=== PATIENT | female | born 1990 | race American Indian/Alaskan Native ===

== ENCOUNTER 2022-03-06 06:14 | Day surgery (SDC) | payer OTHER ==
--- NOTE | 2022-03-05 14:56 | History and Physical Report ---
History of Present Illness Date of examination: 02/27/22 Date of admission: 03/06/22 Chief complaint: IUD Removal History of present illness: Visit Type: Pre-Op CC: no complaints. History of Present Illness: Pt presents for Pre-Op. No c/o. ....................... ..............................................Jessica Abbott February 27, 2022 10:20 AM mask,Patient denies fever, cough, shortness of breath and exposure to COVID-19. Pt presents for preop and order so IUD removal hysteroscopically under anesthesia. All risk/benefits/alternatives were d/w pt and questions were addressed and answered. Consents signed and placed on the chart. Risk that were discussed were uterine peforation, inablitlity to remove the device, need for laproscopy and lapratomy for uterine injury, injuiry to vaginal or bladder need for admission to hospital, infections, need for transfusion. Pt expressed understanding. She will rto the next day after removal for remplacement of the device. 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 of genital herpes: no Hx of STD: chlamydia Active Medications (reviewed today): None Current Allergies (reviewed today): No known allergies Past Medical History: Reviewed history from 01/10/2022 and no changes required: Allergies-seasonal Fibroids Past Surgical History: Reviewed history from 01/10/2022 and no changes required: positive: UFE 08/2020 removal of lipoma on "spine" [FH-SH-CCC] Risk Factors: Smoked Tobacco Use: Never smoker Smokeless Tobacco Use: Never Passive Smoke Exposure: no HIV High Risk Behavior: no Exercise: no Seatbelt Use: 100 % Review of Systems General Denies fever, chills, sweats, anorexia, fatigue, weakness, malaise, weight loss and sleep disorder. Denies nausea, vomiting, headache, swelling of legs, abdominal pain, vaginal discharge, vaginal bleeding and contractions. Denies vaginal discharge, incontinence, dysuria, hematuria, urinary frequency, amenorrhea, menorrhagia, abnormal vaginal bleeding, pelvic pain, genital sores, decreased libido, painful periods, painful sex, urinary urgency, hot flashes, vaginal dryness, vaginal itching and vaginal odor. CV Denies chest pains, palpitations, syncope, dyspnea on exertion, orthopnea, PND and peripheral edema. Resp Denies cough, dyspnea at rest, excessive sputum, hemoptysis, wheezing and pleurisy. GI Denies nausea, vomiting, diarrhea, constipation, change in bowel habits, abdominal pain, melena, hematochezia, jaundice, gas/bloating, indigestion/heartburn, dysphagia and odynophagia. Endo Denies cold intolerance, heat intolerance, polydipsia, polyphagia, polyuria and unusual weight change. Breast Denies left breast lump, right breast lump, nipple discharge, bloody discha rge from nipple, breast pain, abnormal mammogram and breast enlargement. MS Denies back pain, joint pain, joint swelling, muscle cramps, muscle weakness, stiffness, arthritis, sciatica, restless legs, leg pain at night and leg pain with exertion. Derm Denies rash, itching, dryness and suspicious lesions. Neuro Denies paralysis, paresthesias, headache, seizures, tremors, vertigo, transient blindness, frequent falls, frequent headaches and difficulty walking. Psych Denies depression, anxiety, irritability and mood swings. Eyes Denies blurring, diplopia, irritation, discharge, vision loss, eye pain and photophobia. ENT Denies earache, ear discharge, tinnitus, decreased hearing, nasal congestion, nosebleeds, sore throat and hoarseness. Allergy Denies urticaria, allergic rash, hay fever and recurrent infections. Heme Denies abnormal bruising, bleeding and enlarged lymph nodes. [Labs In-House] Physical Exam Appearance: well developed, well nourished, no acute distress Other Exams Lungs: no rales, rhonchi, or wheezes Heart: S1, S2, no murmur, rub, or gallop Abdomen: soft, non-tender, no masses, bowel sounds normal Extremities: normal alignment, no joint enlargement, crepitus, masses or tenderness; normal tone and strength Past History Past Medical History: other (see hpi) Past Surgical History: other (see hpi) Family/Genetic History: other (see hpi) Social history: other (see hpi) Medications and Allergies Allergies Allergy/AdvReac Type Severity Reaction Status Date / Time ibuprofen Allergy Hives Verified 03/05/22 12:36 Home Medications Medication Instructions Recorded Confirmed Last Taken Type No Known Home Medications [No 02/27/22 02/27/22 Unknown History Reported Home Medications] Active Meds: Active Medications Acetaminophen (Acetaminophen 500 Mg Tab) 1,000 mg PO PREOP MABLE Stop: 03/06/22 23:59 Lactated Ringer's (Lactated Ringers) 1,000 mls @ 100 mls/hr IV DIRECT MABLE Stop: 03/06/22 23:59 Midazolam HCl (Midazolam 2 Mg/2 Ml Inj) 2 mg IV PREOP NR Stop: 03/06/22 23:59 Scopolamine (Scopolamine Transdermal Patch 72 Hr) 1 each TD PREOP NR Stop: 03/06/22 23:59 - Physical Exam Cardiovascular: Normal S1, Normal S2 Lungs: Positive: Clear to auscultation, Normal air movement Abdomen: Positive: normal appearance, soft. Negative: distention, tenderness, guarding Genitourinary (Female): Positive: other (deferred) Extremities: Positive: normal. Negative: tenderness, edema Deep Tendon Reflex Grade: Normal +2 Results All other labs normal. Assessment and Plan - Patient Problems (1) Encounter for removal of intrauterine contraceptive device (IUD) Status: Acute Plan to address problem: -admit -hysteroscopy with removal of IUD -consent signed and placed on the chart.
[~2022-03-06 06:14] MED LIST: ACETAMINOPHEN 500 MG TAB PO SCH; CELECOXIB 200 MG CAP PO NR; GABAPENTIN 300 MG CAP PO NR; LACTATED RINGERS 1,000 ML IV SCH; MIDAZOLAM 2 MG/2 ML INJ IV NR; SCOPOLAMINE TRANSDERMAL PATCH 72 HR TD NR
[2022-03-06] MEDS ORDERED: HYDROmorphone 0.5 MG/0.5 ML INJ IV PRN (07:21)
[2022-03-06] MEDS ORDERED: HYDROcodone/ACETAMINOPHEN 5-325 MG TAB PO PRN (07:21)
[2022-03-06] MEDS ORDERED: ONDANSETRON 4 MG/2 ML INJ IV PRN (07:21)
--- NOTE | 2022-03-06 07:21 | Anesthesia Consultation ---
Anesthesia Consult and Med Hx Date of service: 03/06/22 - Airway Anesthetic Teeth Evaluation: Good (upper left implant) ROM Head & Neck: Adequate Mental/Hyoid Distance: Adequate Mallampati Class: Class II Intubation Access Assessment: Probably Good - Cardiac Exam Cardiac Exam: RRR - Pre-Operative Health Status ASA Pre-Surgery Classification: ASA2 Proposed Anesthetic Plan: General (MAC vs GA pending discussion w/ surgeon), MAC - Pulmonary Hx Asthma: Yes (last INH 10/2021) Hx Respiratory Symptoms: No - Cardiovascular System Hx Hypertension: No - Central Nervous System CVA: No - Endocrine Hx Renal Disease: No Hx Liver Disease: No Hx Insulin Dependent Diabetes: No Hx Non-Insulin Dependent Diabetes: No Hx Thyroid Disease: No - Additional Comments Anesthesia Medical History Comments: No hx anesthetic complications.
--- NOTE | 2022-03-06 07:21 | Anesthesia Day of Surgery ---
Anesthesia Day of Surgery - Day of Surgery Patient Examined: Yes Patient H&P Reviewed: Yes Patient is NPO: Yes
[2022-03-06] MEDS ORDERED: SILVER NITRATE APPLICATOR 1 EA TP ONE (07:28)
[2022-03-06] MEDS ORDERED: ceFAZolin/Water 2 GM/20 ML 2 GM/20 ML SYRINGE IV ONE (07:40)
[2022-03-06] MEDS ORDERED: LIDOCAINE MPF (2%) 20 MG/1 ML VIAL 5 ML ONE (07:50)
[2022-03-06] MEDS ORDERED: propofoL 200 MG/20 ML VIAL IV ONE (07:50)
[2022-03-06] MEDS ORDERED: ONDANSETRON 4 MG/2 ML INJ ONE (08:36)
[2022-03-06] MEDS ORDERED: dexAMETHasone 20 MG/5 ML VIAL ONE (08:36)
--- NOTE | 2022-03-06 08:43 | Operative Report ---
Operative Report Operative Report: Date of procedure: 03/06/2022 Pre-operative diagnosis: Retained IUD Post-operative diagnosis: Same Procedure name(s): Hysteroscopy removal of IUD Surgeon: Dr. 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 endotracheal anesthesia EBL:l minimal Urine output: Approximately 50 cc of urine out prior to the onset of the procedure via straight catheterization Fluids: 500 mL Findings: Grossly normal uterus. IUD was noted to be near the fundal left norman rface of the uterus. Both ostia seen bilaterally. Indications: Patient desired removal of Mirena IUD. Attempt was made in office for removal but was unsuccessful. Patient was brought to the operating room for removal under anesthesia. Procedure: Patient was taken to the operating room where she was placed under general anesthesia. She was placed in dorsal lithotomy position with legs in Mk stirrups. She was then prepped and draped in sterile fashion. Straight catheterization was done at this time. The anterior lip of the cervix was grasped with a tenaculum and the uterus was sounded to approximately 9 cm. As at this point that the cervix was dilated to allow the passage of hysteroscope. Uterine cavity was noted to have a smooth appearance. Once the device was identified it was grasped with a hysteroscopic grasper and removed under direct visualization. Examination of the device noted that it was intact with all arms in all parts and strings present. Hemostasis was noted to be excellent. Patient was taken to the recovery room awake and in stable condition. Patient was given Ancef prior to the onset of the procedure. All laps and needle counts were correct. Patient tolerated the procedure well.
--- NOTE | 2022-03-06 08:47 | Short Stay Summary ---
Short Stay Documentation Date of service: 03/06/22 - History H&P: dictated Social history: other (see hpi) - Allergies and Medications Current Medications: Allergies ibuprofen Allergy (Verified 03/05/22 12:36) Hives Home Medications Medication Instructions Recorded Confirmed Last Taken Type oxyCODONE /ACETAMINOPHEN [Percocet 1 tab PO Q4HR #10 tab 03/06/22 Unknown Rx 5/325] Active Medications Acetaminophen (Acetaminophen 500 Mg Tab) 1,000 mg PO PREOP MABLE Stop: 03/06/22 23:59 Hydrocodone Bitart/Acetaminophen (Hydrocodone/Acetaminophen 5-325 Mg Tab) 2 each PO ONCE PRN PRN Reason: Pain, Moderate (4-6) Stop: 03/06/22 12:00 Hydromorphone HCl (Hydromorphone 0.5 Mg/0.5 Ml Inj) 0.5 mg IV Q10MIN PRN PRN Reason: Pain , Severe (7-10) Stop: 03/06/22 20:00 Lactated Ringer's (Lactated Ringers) 1,000 mls @ 100 mls/hr IV DIRECT MABLE Stop: 03/06/22 23:59 Cefazolin Sodium 2 gm/ Sodium (Chloride) 100 mls @ 200 mls/hr IV ONCE NR; Protocol Stop: 03/06/22 23:59 Midazolam HCl (Midazolam 2 Mg/2 Ml Inj) 2 mg IV PREOP NR Stop: 03/06/22 23:59 Ondansetron HCl (Ondansetron 4 Mg/2 Ml Inj) 4 mg IV ONCE PRN PRN Reason: Nausea And Vomiting Stop: 03/06/22 12:00 Scopolamine (Scopolamine Transdermal Patch 72 Hr) 1 each TD PREOP NR Stop: 03/06/22 23:59 - Brief post op/procedure progress note Date of procedure: 03/06/22 Pre-op diagnosis: retained IUD Post-op diagnosis: same Procedure: hysteroscopic removal of IUD Anesthesia: GETA Findings: Retained Mirena intrauterine device. Normal-appearing endometrial cavity. Surgeon: JANE CORNEJO Estimated blood loss: minimal Pathology: none - Hospital course Hospital course: Patient admitted for above-stated procedure. Patient will remain in the PACU until she has met criteria for discharge. Patient will follow up in office on tomorrow for replacement of Mirena IUD in the office. - Disposition Condition at discharge: Good Disposition: 01 HOME / SELF CARE / HOMELESS - Discharge Diagnoses (1) Encounter for removal of intrauterine contraceptive device (IUD) Status: Acute Short Stay Discharge Plan Activity: advance as tolerated Weight Bearing Status: Weight Bear as Tolerated Diet: regular Follow up with: JANE CORNEJO MD [Staff Physician] - 03/07/22 Prescriptions: oxyCODONE /ACETAMINOPHEN [Percocet 5/325] 1 tab PO Q4HR #10 tab
[2022-03-06] MEDS ORDERED: SODIUM CHLORIDE 0.9% IRRIG SOLN 2000 ML IR ONE (08:52)
[2022-03-06 09:49] VITALS: BP 125/74
[2022-03-06] MEDS ORDERED: ceFAZolin/STERILE WATER 2 GM/20 ML SYRINGE IV NR (10:00)
--- NOTE | 2022-03-06 10:35 | Post Anesthesia Evaluation ---
- Post Anesthesia Evaluation Patient Participated: Yes Airway Patent: Yes Stable Respiratory Function: Yes Nausea/Vomiting: No Temp > 96.8F: Yes Pain Manageable: Yes Adequeate Hydration: Yes Anesthesia Complications: No
== END 2022-03-06 10:00 | disposition home or self-care (01) ==
LOC: OR 06:14
PROVIDERS: ATTEND Obstetrics & Gynecology
DX: Z30.432 Encounter for removal of intrauterine contraceptive device (principal); T83.39XA Other mechanical complication of intrauterine contraceptive device, initial encounter; G43.909 Migraine, unspecified, not intractable, without status migrainosus; J45.909 Unspecified asthma, uncomplicated; Z88.8 Allergy status to other drugs, medicaments and biological substances; Z79.899 Other long term (current) drug therapy; Z72.89 Other problems related to lifestyle; Z98.890 Other specified postprocedural states; Y82.8 Other medical devices associated with adverse incidents; Y92.89 Other specified places as the place of occurrence of the external cause
CPT/HCPCS: 58562; 81025; 88300; J0690; J1100; J2250; J2405; J2704; J7120; 88302